=== PATIENT | male | born 1990 | race American Indian/Alaskan Native ===

== ENCOUNTER 2018-06-05 17:12 | Emergency (ER) | payer OTHER ==
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
[2018-06-05] MEDS ORDERED: ZOFRAN IV ONE (17:46)
[2018-06-05] MEDS ORDERED: SUBLIMAZE IV ONE (17:46)
[2018-06-05] MEDS ORDERED: TORADOL IV ONE (17:47)
[2018-06-05] MEDS ORDERED: NACL 0.9% 1000 ML 1,000 ML IV ONE (17:48)
--- NOTE | 2018-06-05 17:52 | Emergency Department Report ---
HPI - General Chief Complaint: Extremity Injury, Upper Time Seen by Provider: 06/05/18 17:39 - HPI HPI: Room 20 The patient is a 27-year-old male presenting with a chief complaint of left shoulder pain. The patient states he was playing basketball when he felt his left shoulder pop out of place. Patient states it occurred just prior to arrival. Patient states he has dislocated his left shoulder one time in the past. Patient gets his pain score 10/10. Patient states his last po occurred at approximately noon Location: Left Shoulder Duration: [See above] Quality: Pain Severity:10/10 Modifying factors: Movement increases pain Context: [see above] Mode of transportation: [not driving] ED Past Medical Hx - Past Medical History Previous Medical History?: No - Surgical History Past Surgical History?: No - Family History Family history: no significant - Social History Smoking Status: Never Smoker Substance Use Type: None (denies illicit drug use) - Medications Home Medications: Home Medications Medication Instructions Recorded Confirmed Last Taken Type HYDROcodone/APAP 5-325 [[place] 1 - 2 each PO Q6HR PRN #14 tablet 06/05/18 Unknown Rx 5/325] Ibuprofen [Motrin 800 MG tab] 800 mg PO Q8HR PRN #20 tablet 06/05/18 Unknown Rx ED Review of Systems ROS: Stated complaint: LFT SHOULDER DISLOCATED Other details as noted in HPI Constitutional: no symptoms reported Respiratory: no symptoms reported Endocrine: no symptoms reported Musculoskeletal: arthralgia Physical Exam - Physical Exam Vital Signs: Vital Signs 06/05/18 17:39 Temperature 98.2 F Pulse Rate 86 Respiratory 18 Rate Blood Pressure 123/84 Physical Exam: GENERAL: The patient is well-developed well-nourished male lying on stretcher appearing to be in moderate discomfort. [] HEENT: Normocephalic. Atraumatic. Extraocular motions are intact. Patient has moist mucous membranes. NECK: Supple. Trachea midline CHEST/LUNGS: There is no respiratory distress noted. HEART/CARDIOVASCULAR: Regular. There is no tachycardia. 2+ left radial pulse SKIN: There is no rash. There is no edema. There is no diaphoresis. NEURO: The patient is awake, alert, and oriented. The patient is cooperative. The patient has no focal neurologic deficits. The patient has normal speech. 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 Normal sensation to the left shoulder and left upper extremity MUSCULOSKELETAL: There is deformity of the left shoulder ED Course Vital Signs 06/05/18 17:39 Temperature 98.2 F Pulse Rate 86 Respiratory 18 Rate Blood Pressure 123/84 - Moderate Sedation Indications: fracture/dislocation redu ASA Class: II Mallampati Airway Score: 3 Preparation: desk monitor applied, pulse oximeter, capnometry used, supplemental O2 applied, suction/airway equipment at bedside, IV secured IV Etomidate Dose (mgs): 12 Complications: none Patient Tolerated Procedure: well, no complications - Orthopedic Joint Reduction Joint #1 Consent Obtained: verbal consent, written consent Time Out Performed: Yes Side: left Joint Reduction Location: shoulder Analgesia: moderate sedation Shoulder Technique Used (if applicable): traction/counter-traction Technique Used: traction/counter-traction Post-Reduction Neuro Exam: intact Post-Reduction Vascular Exam: intact Post Reduction X-Ray Obtained: Yes Post Reduction X-Ray Results: reduced Splint Applied: Yes Patient Tolerated Procedure: well, no complications ED Medical Decision Making - Radiology Data Radiology results: image reviewed (left shoulder x-ray#1, left shoulder x-ray #2) interpreted by me: Left shoulder [id number] dislocation. No fracture Left shoulder x-ray #2- no dislocation. No fracture - Differential Diagnosis shoulder dislocation, pathologic humeral fracture Critical care attestation.: If time is entered above; I have spent that time in minutes in the direct care of this critically ill patient, excluding procedure time. ED Disposition Clinical Impression: Dislocation of left shoulder joint, Left shoulder pain Disposition: TO HOME OR SELFCARE Is pt being admited?: No Does the pt Need Aspirin: No Condition: Stable Instructions: Shoulder Dislocation (ED) Additional Instructions: Return to the emergency department immediately should you develop worsening symptoms, fever, inability to tolerate food or liquid or any other concerns. Prescriptions: Ibuprofen [Motrin 800 MG tab] 800 mg PO Q8HR PRN #20 tablet PRN Reason: Pain, Moderate (4-6) HYDROcodone/APAP 5-325 [[place] 5/325] 1 - 2 each PO Q6HR PRN #14 tablet PRN Reason: Pain Referrals: BETO PRYOR MD [Staff Physician] - 3-5 Days (Dr. Pryor is an orthopedic surgeon. Please follow-up with him for further evaluation) Time of Disposition: 19:00
[2018-06-05] MEDS ORDERED: AMIDATE IV ONE (18:16)
--- NOTE | 2018-06-05 18:51 | XRay Report ---
PROCEDURE: XR SHOULDER 2+V LT TECHNIQUE: AP, Y, and oblique views of the left shoulder HISTORY: Left shoulder pain, decreased ROM, r/o dislocation COMPARISONS: None . FINDINGS: There is an anterior dislocation of the left humeral head. There is no evidence of acute fracture. The bony mineralization is normal. IMPRESSION: Anterior dislocation left humeral head. No evidence for fracture This document is electronically signed by Neelam Simpson MD., June 05 2018 06:49:26 PM ET
--- NOTE | 2018-06-05 19:26 | XRay Report ---
PROCEDURE: XR SHOULDER 1V LT HISTORY: post reduction attempt FINDINGS: AP view of the left shoulder was acquired and compared to prior radiographs of earlier in . There has been successful relocation of the left glenohumeral joint. No fracture is seen. IMPRESSION: Successful relocation of left glenohumeral joint This document is electronically signed by Jose Lloyd MD., June 05 2018 07:24:11 PM ET
[2018-06-05 19:42] VITALS: BP 148/83
== END 2018-06-05 19:43 | disposition home or self-care (01) ==
LOC: ED 17:12
DX: S43.005A Unspecified dislocation of left shoulder joint, initial encounter (principal); Z88.2 Allergy status to sulfonamides; Y93.67 Activity, basketball; Y93.89 Activity, other specified; Y92.89 Other specified places as the place of occurrence of the external cause; Y99.8 Other external cause status
CPT/HCPCS: 23650; 73020; 73030; 96374; 96375; 99283; J1885; J2405; J3010; J7030